=== PATIENT | female | born 1950 ===

== ENCOUNTER 2023-12-19 06:45 | Emergency (ER) | payer OTHER, MEDICARE ==
[~2023-12-19] VITALS: Ht 152.4 cm; Wt 73.5 kg
[2023-12-19 07:17] LABS: BASO # 0.1 10*3/uL (0.0-0.1); BASO % 0.6 % (0.0-1.0); EOS # 0.3 10*3/uL (0.0-0.4); EOS % 2.4 % (1.0-4.0); HEMATOCRIT 40.5 % (37.0-47.0); LYMPH # 3.8 10*3/uL (1.3-4.4); LYMPH % 29.2 % (27.0-41.0); MEAN CELL VOLUME 93.3 fl (81.0-99.0); MEAN CORPUSCULAR HGB 30.4 pg (27.0-31.0); MEAN CORPUSCULAR HGB CONC 32.6 g/dl (33.0-37.0); MEAN PLATELET VOLUME 9.7 fl (9.6-12.3); MONO # 0.7 10*3/uL (0.1-1.0); MONO % 5.3 % (3.0-9.0); NEUT # 8.1 10*3/uL (2.3-7.9); NEUT % 61.5 % (47.0-73.0); PLATELET COUNT AUTOMATED 276 10*3/uL (130-400); RED BLOOD COUNT 4.34 10*6/uL (4.10-5.10); WHITE BLOOD COUNT 13.1 10*3/uL (4.8-10.8)
[2023-12-19 07:30] LABS: ACT PARTIAL THROMBO TIME 21.6 SECONDS (20.0-32.1)
[2023-12-19 07:37] LABS: BUN 13 mg/dl (9-23); CHLORIDE 108 mmol/L (98-107); ETHYL ALCOHOL 104.3 mg/dl (<3); POTASSIUM 3.4 mmol/L (3.4-5.1)
== END 2023-12-19 09:08 | disposition short-term general hospital (02) ==
LOC: ED 06:45
PROVIDERS: Internal Medicine
DX: S82.141A Displaced bicondylar fracture of right tibia, initial encounter for closed fracture (principal); F10.129 Alcohol abuse with intoxication, unspecified; M54.2 Cervicalgia; R07.89 Other chest pain; M79.644 Pain in right finger(s); V47.9XXA Unspecified car occupant injured in collision with fixed or stationary object in traffic accident, initial encounter; Y93.89 Activity, other specified; Y92.488 Other paved roadways as the place of occurrence of the external cause; Y99.8 Other external cause status; Y90.5 Blood alcohol level of 100-119 mg/100 ml